=== PATIENT | female | born 1990 | race Caucasian/White ===

== ENCOUNTER 2017-10-02 16:23 | Emergency (ER) | payer OTHER | END 2017-10-03 05:12 | disposition home or self-care (01) | LOC: E/R 10-03 05:12 | DX: S50.12XA Contusion of left forearm, initial encounter (principal); S39.012A Strain of muscle, fascia and tendon of lower back, initial encounter; W19.XXXA Unspecified fall, initial encounter; Y92.9 Unspecified place or not applicable; Z87.891 Personal history of nicotine dependence | CPT/HCPCS: 73090; 73090-RT; 99283-25 ==

== ENCOUNTER 2018-06-30 17:17 | Emergency (ER) | payer MEDICAID, OTHER ==
[2018-06-30] MEDS: IBUPROFEN 600 MG TAB PO (19:33)
== END 2018-06-30 21:04 | disposition home or self-care (01) ==
LOC: FTE 17:17
DX: M54.12 Radiculopathy, cervical region (principal); F17.210 Nicotine dependence, cigarettes, uncomplicated
CPT/HCPCS: 72040; 99283-25